=== PATIENT | male | born 1990 | race Hispanic/Latino ===

== ENCOUNTER 2020-07-16 20:50 | Emergency (ER) | payer OTHER | END 2020-07-16 23:00 | disposition home or self-care (01) | LOC: EDH 20:50 | DX: S43.084A Other dislocation of right shoulder joint, initial encounter (principal); Z90.49 Acquired absence of other specified parts of digestive tract; Z72.0 Tobacco use; Y04.0XXA Assault by unarmed brawl or fight, initial encounter; Y93.89 Activity, other specified; Y92.89 Other specified places as the place of occurrence of the external cause; Y99.8 Other external cause status | CPT/HCPCS: 23650; 73020; 73030 ==